=== PATIENT | male | born 2000 | race Caucasian/White ===

== ENCOUNTER → 2021-04-03 | Outpatient (CLI) | payer OTHER ==
--- NOTE | 2021-04-03 09:12 | 2DMMODE ---
[place] [address] 2 D/M-MODE ECHOCARDIOGRAM Name: AMPARO DIEZ Room: [facility]#: [id number] Admission: 04/03/21 Attend Phys: Angeles Winters Discharge: Date of : 2 Date of Service: 04/03/21911 Report #: [id number] THIS REPORT FOR: cc: Angeles Hawley Jacqueline D. FNP Liston, Michael J. MD [facility] ~ APPROVED REPORT Study performed: 04/03/2021 09:09:51 EXAM: Comprehensive 2D, Doppler, and color-flow Echocardiogram Patient Location: Out-Patient BSA: 2.22 HR: 86 bpm BP: 145/86 mmHg Other Information Study Quality: Good Indications Chest Pain 2D Dimensions IVSd: 11.31 (7-11mm) LVOT Diam: 20.89 (18-24mm) LVDd: 49.64 mm PWd: 9.14 (7-11mm) Ascending Ao: 29.67 (22-36mm) LVDs: 37.30 (25-40mm) Aortic Root: 30.53 mm Volumes Left Atrial Volume (Systole) LA ESV Index: 16.90 mL/m2 Aortic Valve AoV Peak Jerson.: 1.16 m/s AO Peak Gr.: 5.39 mmHg LVOT Max P.14 mmHg AO Mean Gr.: 2.54 mmHg LVOT Mean P.80 mmHg LVOT Max V: 1.02 m/s AO V2 VTI: 18.80 cm LVOT Mean V: 0.60 m/s RENETTA (VTI): 3.54 cm2 LVOT V1 VTI: 19.42 cm Mitral Valve E/A Ratio: 1.41 [place] [address] 2 D/M-MODE ECHOCARDIOGRAM Name: AMPARO DIEZ Room: [facility]#: [id number] Admission: 04/03/21 Attend Phys: Angeles Winters Discharge: Date of : 01 Date of Service: 04/03/21911 Report #: [id number] MV Decel. Time: 163.68 ms MV E Max Jerson.: 0.83 m/s MV PHT: 47.47 ms MVA (PHT): 4.63 cm2 TDI E/Lateral E': 4.61 E/Medial E': 6.92 Medial E' Jerson.: 0.12 m/s Lateral E' Jerson.: 0.18 m/s Pulmonary Valve PV Peak Jerson.: 1.17 m/s PV Peak Gr.: 5.51 mmHg Tricuspid Valve RAP Estimate: 5.00 mmHg TR Peak Gr.: 23.27 mmHg RVSP: 28.27 mmHg PA Pressure: 28.27 mmHg Left Ventricle The left ventricle is normal size. There is normal LV segmental wall motion. There is normal left ventricular wall thickness. Left ventricular systolic function is normal. LVEF is 55-60%. The left ventricular diastolic function is normal. Right Ventricle The right ventricle is normal size. The right ventricular systolic function is normal. Atria The left atrium size is normal. The right atrium size is normal. Aortic Valve The aortic valve is normal in structure. No aortic regurgitation is present. There is no aortic valvular stenosis. Mitral Valve The mitral valve is normal in structure. There is no mitral valve regurgitation noted. No evidence of mitral valve stenosis. Tricuspid Valve The tricuspid valve is normal in structure. Trace tricuspid regurgitation. Pulmonic Valve The pulmonary valve is normal in structure[place] [address] 2 D/M-MODE ECHOCARDIOGRAM Name: AMPARO DIEZ Room: [facility]#: [id number] Admission: 04/03/21 Attend Phys: Angeles Winters Discharge: Date of : 2 Date of Service: 04/03/21 0912 Report #: [id number] regurgitation. Great Vessels The aortic root is normal in size. IVC is normal in size and collapses >50% with inspiration. Pericardium There is no pericardial effusion. <Conclusion> The left ventricle is normal size. There is normal left ventricular wall thickness. Left ventricular systolic function is normal. LVEF is 55-60%. The left ventricular diastolic function is normal. There is normal LV segmental wall motion. IVC is normal in size and collapses >50% with inspiration. <ELECTRONICALLY SIGNED> By: Darrell Esteves MD, FACC 04/03/21911 1 1 Darrell Esteves MD, FACC /INF
== END ==
LOC: M.CRD 07:40
PROVIDERS: ATTEND Nurse Practitioner
DX: R07.89 Other chest pain (principal); K21.9 Gastro-esophageal reflux disease without esophagitis; E66.09 Other obesity due to excess calories; Z68.32 Body mass index [BMI] 32.0-32.9, adult; Z82.49 Family history of ischemic heart disease and other diseases of the circulatory system